=== PATIENT | male | born 1995 | race Hispanic/Latino ===

== ENCOUNTER 2021-05-27 19:33 | Emergency (ER) | payer OTHER ==
[~2021-05-27] VITALS: Ht 175.3 cm; Wt 77.1 kg
[2021-05-27] MEDS ORDERED: IOHEXOL 350 MG/ML 100ML INFUS..BTL IV ONE (20:23)
[2021-05-27] MEDS ORDERED: 0.9%NACL 1000ML 1,000 ML IV ONE ×2 (20:30→21:32)
[2021-05-27] MEDS ORDERED: ONDANSETRON 4MG INJ IVP ONE (20:30)
[2021-05-27 20:33] LABS: BASOPHILS % (AUTO) 0.5 % (0.0-5.0); EOSINOPHILS % (AUTO) 1.3 % (0.0-8.0); HEMATOCRIT 43.7 % (42-54); LYMPHOCYTES % (AUTO) 17.1 % (21.0-51.0); MEAN CORPUSCULAR HEMOGLOBIN 29.8 pg (27.0-33.0); MEAN CORPUSCULAR HGB CONC 33.6 g/dL (32.0-36.0); MEAN CORPUSCULAR VOLUME 88.5 fL (79-99); MONOCYTES % (AUTO) 6.1 % (3.0-13.0); NEUTROPHILS % (AUTO) 74.6 % (40.0-77.0); PLATELET COUNT (AUTO) 317 K/uL (130-400); RED BLOOD CELL COUNT(AUTO) 4.94 MIL/uL (4.50-6.20); RED CELL DISTRIBUTION WIDTH 12.2 % (11.0-15.5); WHITE BLOOD COUNT (AUTO) 10.8 K/uL (4.8-10.8)
[2021-05-27 20:44] LABS: CARBON DIOXIDE 29 mmol/L (21-32); CHLORIDE 103 mmol/L (101-111); GLOMERULAR FILTR. RATE CALC 96 mL/min (>60); GLUCOSE,RANDOM 107 mg/dL (70-105); SODIUM SERUM 139 mmol/L (136-145); UREA NITROGEN, BLOOD 16 mg/dL (7-18)
[2021-05-27 20:45] LABS: INR 0.99 (0.85-1.15); PROTHROMBIN TIME 10.8 SEC (9.6-11.6)
[2021-05-27 20:56] LABS: ALANINE AMINOTRANSFERASE 50 U/L (12-78); ALBUMIN 4.3 g/dL (3.5-5.0); ALCOHOL, BLOOD < 3 mg/dL (0-10); ASPARTATE AMINOTRANSFERASE 21 U/L (10-37); BILIRUBIN,TOTAL 0.6 mg/dL (0.2-1.0); CREATINE KINASE, TOTAL 268 U/L (21-232); LIPASE 62 U/L (114-286); MYOGLOBIN 43 ng/mL (10-92); TOTAL PROTEIN, SERUM 8.4 g/dL (6.0-8.3)
[2021-05-27] MEDS ORDERED: ORPHENADRINE CITRATE 30 MG/ML ML IV ONE (21:30)
[2021-05-27] MEDS ORDERED: KETOROLAC 30MG VIAL (30MG/ML) IV ONE (21:30)
[2021-05-27] MEDS ORDERED: ONDANSETRON 4MG INJ ONE (21:32)
[2021-05-27 22:13] LABS: APPEARANCE,URINE CLEAR (CLEAR); BILIRUBIN,URINE NEGATIVE (NEGATIVE); COLOR,URINE YELLOW (YELLOW); GLUCOSE, URINE (UA) NEGATIVE (NEGATIVE); KETONES,URINE NEGATIVE (NEGATIVE); LEUKOCYTE ESTERASE ,URINE NEGATIVE (NEGATIVE); NITRATE,URINE NEGATIVE (NEGATIVE); OCCULT BLOOD,URINE NEGATIVE (NEGATIVE); PROTEIN,URINE NEGATIVE (NEGATIVE); UROBILINOGEN,URINE 0.2 mg/dL (0.2-1.0)
[2021-05-27 22:22] LABS: AMPHET/METH SCREEN,URINE NEGATIVE (NEGATIVE); BARBITURATE SCREEN, URINE NEGATIVE (NEGATIVE); BENZODIAZEPINES SCREEN,URINE NEGATIVE (NEGATIVE); CANNABINOID SCREEN,URINE POSITIVE (NEGATIVE); COCAINE SCREEN,URINE NEGATIVE (NEGATIVE); OPIATE SCREEN,URINE NEGATIVE (NEGATIVE); PHENCYCLIDINE SCREEN,URINE NEGATIVE (NEGATIVE)
[2021-05-27] MEDS ORDERED: MELO7.5T12 PO (22:23)
[2021-05-27] MEDS ORDERED: LIDOP TP (22:23)
[2021-05-27] MEDS ORDERED: CYCL-309 PO (22:23)
[2021-05-27 22:30] VITALS: BP 117/73
== END 2021-05-27 23:08 | disposition home or self-care (01) ==
LOC: EDH 19:33
DX: S16.1XXA Strain of muscle, fascia and tendon at neck level, initial encounter (principal); S39.012A Strain of muscle, fascia and tendon of lower back, initial encounter; Z79.899 Other long term (current) drug therapy; V49.49XA Driver injured in collision with other motor vehicles in traffic accident, initial encounter; Y93.89 Activity, other specified; Y92.413 State road as the place of occurrence of the external cause; Y99.8 Other external cause status
CPT/HCPCS: 36415; 70450; 71260; 72125; 74177; 80053; 80305; 81003; 82550; 83690; 83874; 84484; 85025; 85610; 93005; 96361; 96374; 96375; 99285; J1885; J2360 ×2; J2405; J7030; Q9967